=== PATIENT | female | born 1950 | race Caucasian/White ===

== ENCOUNTER 2020-06-10 11:04 | Outpatient (CLI) | payer MEDICARE, SELFPAY ==
[2020-06-10 11:12] LABS: Hematocrit 43.3 % (35.0-42.0); Hemoglobin 14.4 g/dL (11.7-13.8); Mean Corpuscular HGB Conc 33.3 g/dL (32.0-36.0); Mean Corpuscular Hemoglobin 30.4 pg (27.0-31.0); Mean Corpuscular Volume 91.4 fL (78.0-102.0); Mean Platelet Volume 8.6 fl (9.2-11.8); Platelet Count Result 301 K/mm3 (150-420); Red Blood Count 4.74 M/mm3 (4.20-5.40); Red Cell Distribution Width 13.2 % (11.6-14.4); White Blood Count 8.3 K/mm3 (4.8-10.8)
[2020-06-10 12:40] LABS: Alanine Aminotransferase 19 U/L (14-59); Albumin Level 3.9 g/dL (3.4-5.0); Alkaline Phosphatase 94 U/L (46-116); Anion Gap 7 mmol/L (8-16); Aspartate Amino Transferase < 10 U/L (15-37); Bilirubin,Total 0.4 mg/dL (0.00-1.00); Blood Urea Nitrogen 22 mg/dL (7-18); Calcium 9.3 mg/dL (8.5-10.1); Carbon Dioxide 28 mmol/L (21-32); Chloride 103 mmol/L (98-108); Cholesterol 255 mg/dL (0-200); Estimated Glomerular Filt Rate > 60; Glucose 86 mg/dL (70-99); HDL Direct 62 mg/dL (40-60); LDL Cholesterol Calculated 169 mg/dL (<130); Osmolality Calculated 288 mOsm/kg (285-295); Potassium 5.1 mmol/L (3.5-5.1); Sodium 138 mmol/L (136-145); Triglycerides 119 mg/dL (0-150)
== END 2020-06-10 11:05 | disposition home or self-care (01) ==
PROVIDERS: PCP Family Medicine; Visit Provider Family Medicine
DX: E78.00 Pure hypercholesterolemia, unspecified (principal); Z00.00 Encounter for general adult medical examination without abnormal findings
CPT/HCPCS: 36415; 80053; 80061; 85027

== ENCOUNTER 2021-11-15 08:36 | Outpatient (CLI) | payer MEDICARE, SELFPAY ==
--- NOTE | ~2021-11-15 | XR_ITS ---
EXAMINATION: XR knee RT min 4V DATE: 11/15/2021 08:53 INDICATION: Generalized right knee pain TECHNIQUE: Weight bearing anteroposterior and Villagran, sunrise, and flexed lateral views of the rig ht knee were obtained COMPARISON: None. FINDINGS: Alignment is normal. No fracture. Tricompartmental osteoarthritis of the right knee with severe join t space narrowing at the lateral side of the patellofemoral compartment and moderate joint space narr owing the medial compartment, greatest within the knee in flexion. Marginal osteophytes, moderate siz ed the patellofemoral compartment and small in the medial and lateral compartments. Moderate-sized ri ght knee joint effusion without layering lipohemarthrosis. Soft tissues are unremarkable. IMPRESSION: 1. Tricompartmental osteoarthritis of the right knee, severe at the lateral patellofemoral compartmen t and moderate in the medial compartment. 2. Moderate-sized right knee joint effusion. Reviewed, dictated and finalized at location A. IMPRESSION: 1. Tricompartmental osteoarthritis of the right knee, severe at the lateral pat ellofemoral compartment and moderate in the medial compartment. 2. Moderate-sized right knee joint effusion.
== END 2021-11-15 08:37 | disposition home or self-care (01) ==
LOC: CHSIMG 08:38
PROVIDERS: PCP Nurse Practitioner Family; Visit Provider Orthopaedic Surgery
DX: M25.561 Pain in right knee (principal)
CPT/HCPCS: 73564

== ENCOUNTER 2021-11-25 09:24 | Outpatient (CLI) | payer MEDICARE, SELFPAY ==
[2021-11-25 10:15] LABS: Alanine Aminotransferase 24 U/L (14-59); Alkaline Phosphatase 99 U/L (46-116); Anion Gap 10 mmol/L (8-16); Aspartate Amino Transferase 11 U/L (15-37); Bilirubin,Total 0.6 mg/dL (0.00-1.00); Blood Urea Nitrogen 18 mg/dL (7-18); Calcium 9.5 mg/dL (8.5-10.1); Carbon Dioxide 30 mmol/L (21-32); Chloride 101 mmol/L (98-108); Cholesterol 167 mg/dL (0-200); Estimated Glomerular Filt Rate > 60; Glucose 86 mg/dL (70-99); HDL Direct 71 mg/dL (40-60); LDL Cholesterol Calculated 83 mg/dL (<130); Osmolality Calculated 292 mOsm/kg (285-295); Potassium 4.2 mmol/L (3.5-5.1); Sodium 141 mmol/L (136-145); Total Protein 6.9 g/dL (6.4-8.2); Triglycerides 64 mg/dL (0-150)
== END 2021-11-25 09:25 | disposition home or self-care (01) ==
LOC: CHSLAB 09:25
PROVIDERS: PCP Nurse Practitioner Family; Visit Provider Nurse Practitioner Family
DX: E78.5 Hyperlipidemia, unspecified (principal)
CPT/HCPCS: 36415; 80053; 80061

== ENCOUNTER 2021-12-30 09:01 | Outpatient (CLI) | payer MEDICARE, SELFPAY ==
[2021-12-30 09:15] LABS: Basophils Absolute Auto 0.05 K/mm3 (0.00-0.10); Basophils Percent Auto 0.8 % (0.0-1.0); Eosinophils Absolute Auto 0.47 K/mm3 (0.02-0.50); Eosinophils Percent Auto 7.1 % (1.0-6.0); Hematocrit 41.3 % (35.0-42.0); Hemoglobin 13.9 g/dL (11.7-13.8); Immature Granulocyte Absolute 0.03 K/mm3 (0.00-0.00); Immature Granulocyte Percent A 0.5 % (0.0-0.0); Lymphocytes Absolute Auto 2.17 K/mm3 (1.10-4.50); Lymphocytes Percent Auto 32.9 % (18.0-42.0); Mean Corpuscular HGB Conc 33.7 g/dL (32.0-36.0); Mean Corpuscular Hemoglobin 31.2 pg (27.0-31.0); Mean Corpuscular Volume 92.6 fL (78.0-102.0); Mean Platelet Volume 8.8 fl (9.2-11.8); Monocytes Absolute Auto 0.46 K/mm3 (0.10-0.90); Neutrophils Absolute Auto 3.4 K/mm3 (1.7-7.2); Neutrophils Percent Auto 51.7 % (50.0-70.0); Platelet Count Result 288 K/mm3 (150-420); Red Blood Count 4.46 M/mm3 (4.20-5.40); Red Cell Distribution Width 13.1 % (11.6-14.4); White Blood Count 6.6 K/mm3 (4.8-10.8)
[2021-12-30 09:46] LABS: Alanine Aminotransferase 23 U/L (14-59); Albumin Level 3.6 g/dL (3.4-5.0); Alkaline Phosphatase 102 U/L (46-116); Anion Gap 9 mmol/L (8-16); Aspartate Amino Transferase 14 U/L (15-37); Bilirubin,Total 0.6 mg/dL (0.00-1.00); Blood Urea Nitrogen 21 mg/dL (7-18); Calcium 9.1 mg/dL (8.5-10.1); Carbon Dioxide 26 mmol/L (21-32); Chloride 104 mmol/L (98-108); Estimated Glomerular Filt Rate > 60; Free T4 Free Thyroxine 1.05 ng/dL (0.76-1.46); Glucose 96 mg/dL (70-99); Osmolality Calculated 291 mOsm/kg (285-295); Sodium 139 mmol/L (136-145); Thyroid Stimulating Hormone 1.07 uIU/mL (0.36-3.74); Total Protein 6.8 g/dL (6.4-8.2)
[2022-01-08 19:22] LABS: Chenodeoxycholic Acid 1.6 umol/L (< OR = 3.9); Cholic Acid 0.8 umol/L (< OR = 2.8); Total Bile Acids 4.3 umol/L (< OR = 8.3)
== END 2021-12-30 09:02 | disposition home or self-care (01) ==
LOC: CHSLAB 09:04
PROVIDERS: PCP Nurse Practitioner Family
DX: L29.9 Pruritus, unspecified (principal)
CPT/HCPCS: 36415; 80053; 82542; 84439; 84443; 85025

== ENCOUNTER 2022-01-27 11:31 | Outpatient (CLI) | payer MEDICARE, SELFPAY ==
[2022-01-27 11:54] LABS: Basophils Absolute Auto 0.03 K/mm3 (0.00-0.10); Basophils Percent Auto 0.4 % (0.0-1.0); Hematocrit 39.4 % (35.0-42.0); Hemoglobin 13.4 g/dL (11.7-13.8); Immature Granulocyte Absolute 0.02 K/mm3 (0.00-0.00); Immature Granulocyte Percent A 0.3 % (0.0-0.0); Lymphocytes Absolute Auto 2.13 K/mm3 (1.10-4.50); Lymphocytes Percent Auto 31.7 % (18.0-42.0); Mean Corpuscular Volume 91.2 fL (78.0-102.0); Monocytes Absolute Auto 0.53 K/mm3 (0.10-0.90); Monocytes Percent Auto 7.9 % (2.0-11.0); Neutrophils Absolute Auto 3.8 K/mm3 (1.7-7.2); Neutrophils Percent Auto 56.7 % (50.0-70.0); Platelet Count Result 307 K/mm3 (150-420); Red Blood Count 4.32 M/mm3 (4.20-5.40); Red Cell Distribution Width 12.8 % (11.6-14.4); White Blood Count 6.7 K/mm3 (4.8-10.8)
[2022-01-27 12:46] LABS: Ferritin 137 ng/mL (8-252); Iron 89 ug/dL (50-170)
[2022-01-30 16:58] LABS: Albumin 4.2 g/dL (3.8-4.8); Alpha 1 Globulin 0.3 g/dL (0.2-0.3); Alpha 2 Globulin 0.7 g/dL (0.5-0.9); Beta 1 Globulin 0.5 g/dL (0.4-0.6); Gamma Globulin 0.7 g/dL (0.8-1.7); Interpretation Consistent with; Protein, Total 6.7 g/dL (6.1-8.1)
[2022-02-03 15:53] LABS: Lambda Light Chain 10.5 mg/L (5.7-26.3)
== END 2022-01-27 11:32 | disposition home or self-care (01) ==
LOC: CHSLAB 11:37
PROVIDERS: PCP Nurse Practitioner Family
DX: R71.8 Other abnormality of red blood cells (principal); R21 Rash and other nonspecific skin eruption; D80.1 Nonfamilial hypogammaglobulinemia
CPT/HCPCS: 36415; 82570; 82728; 83540; 83883; 84155; 84156; 84165; 84166; 85025

== ENCOUNTER 2022-04-13 07:44 | Outpatient (CLI) | payer MEDICARE, SELFPAY | END 2022-04-13 07:45 | disposition home or self-care (01) | LOC: CHSAUDIO 07:46 | PROVIDERS: PCP Nurse Practitioner Family; Visit Provider Nurse Practitioner Family | DX: Z71.89 Other specified counseling (principal) | CPT/HCPCS: 92557 ==

== ENCOUNTER 2023-05-04 08:40 | Outpatient (RCR) | payer MEDICARE, SELFPAY ==
--- NOTE | 2023-05-05 13:11 | OPREHPOC ---
Outpatient Therapy Plan of Care This is a Multidisciplinary Plan of Care that may contain components documented by all disciplines (PT, OT, and ST.) PT Problem 1 PT Problem #1 Knowledge Deficit PT Goal 1 Goal 1. Patient to demonstrate independence with HEP to improve progress made in PT. Target Visit 5 PT Problem 2 PT Problem #2 Pain PT Goal 1 Goal 1. Patient to report pain in the R thigh/hip as 2/ 10 at worst to improve ability to walk in grocery store without rest break. Target Visit 10 PT Problem 3 PT Problem #3 Impaired Strength PT Goal 1 Goal 1. Patient to achieve R LE strength of 4+/5 or greater overall to improve her ability to ascend/ descend stairs in community. Target Visit 10 PT Problem 4 PT Problem #4 Impaired Flexibility PT Goal 1 Goal 1. Patient to improve R hamstring length to lacking 10 degrees or less to improve ability to reach floor to cigar packer and picker objects. 2. Patient to improve B rectus femoris flexibility to lacking 15 degrees or less. 3. Patient to improve R ITB length to mild tightness in order to improve standing posture. Target Visit 10 PT Problem 5 PT Problem #5 Impaired Functional Mobil PT Goal 1 Goal 1. Patient to improve LEFS to 5% or less functional decline to improve patient's ability to play with grandchildren. 2. Patient to walk 500 feet with reports of knee in R knee and thigh at 1/10 or less to improve her ability to walk in community. Target Visit 10
--- NOTE | 2023-05-05 13:12 | PTOPEVAL1 ---
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 She notes she visited the doctor, and has received cortisone as well as gel injections to treat the pain. At home she also treats pain with TLC and ice. She notes when she walks extended distances [place] the airport, pain in the knee reaches all the up the lateral thigh into the buttock. She feels like she walks with an abnormal pattern. She notes no surgeries in the R leg, but has noted arthritis from x-rays and currently wants to avoid a knee replacement. She reports being pretty active, but has since found difficulty in maintaining this level of activity. She notes that she was using a cane in the past to ambulate with, as well as wearing a knee brace. She notes that last week while she was working in her yard, she had increased pain in the hip that recovered with a rest break. She has concerns about not being able to walk further distances due to the pain. She notes she is able to perform all her daily activities with modifications. Reported Pain Level Pain Score 0,0: Self Report Assessment PT Clinical Summary Mrs. Stevens is a 73 y/o female who presents to skilled PT for R knee pain and ITB irritation. She currently shows limitations in R knee ROM, LE strength, and flexibility. Patient has 15% functional decline as assessed by the LEFS. She reports difficulty with walking for longer distances and hopes to return to her prior activities with no limitations. She presents with an antalgic gait pattern, which is further impaired by her inability to reach terminal knee extension both actively and passively. Patient would benefit from continued skilled PT to address ROM, strength, flexibility, and gait to improve her ability to function in the community and home environments. Plan of Care Interventions Electrical Stimulation,Gait Training,Hot Pack/Cold Pack,Manual Therapy,Neuro Re-education,Patient/ Caregiver Educati,Therapeutic Activities, Therapeutic Exercise PT Services Indicated Yes
--- NOTE | 2023-05-29 13:45 | PTOPEVAL1 ---
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 reports that her pain in the right knee and right leg has improved. Jam eports that pain is a 2/10 at rest. It does increase to a 6/10, but it is much less intense and frequent. She that steps remain difficult and still does 1 step at a time. She reports that she would like to continue to decrease her pain and be able to walk and navigate steps better. Reported Pain Level Pain Score 2,2: Self Report Pain Score 2,6: Self Report Assessment PT Clinical Summary Mrs. Stevens has attended a total of 10 treatment sessions. In this time she has demonstrated improvement in ROM, strength, endurance and functional mobility. She continues to have hip abductor weakness and difficulty with navigating steps. At this time it is recommended that skilled PT is continued focusing on remaining gait deficits and weakness to allow for improved efficiency with stair navigation. Plan of Care Interventions Electrical Stimulation,Gait Training,Hot Pack/Cold Pack,Manual Therapy,Neuro Re-education,Patient/ Caregiver Educati,Therapeutic Activities, Therapeutic Exercise,Self-Care/Home Management PT Services Indicated Yes Treatment Frequency and 1x/week x 4 visits Duration These treatments will address the objective and functional deficits as defined above. The patient will be advanced safely and appropriately in order for the patient to progress towards his/her prior level of function. Additional exercises will be introduced and as well as a comprehensive home exercise program upon discharge, if needed, ?to ensure carryover of functional gains achieved in the clinic. This treatment plan has been reviewed and agreement upon by the patient.
== END 2023-06-26 14:10 | disposition home or self-care (01) ==
LOC: CHSPT 08:40
PROVIDERS: Visit Provider Orthopaedic Surgery
DX: M76.31 Iliotibial band syndrome, right leg (principal); M17.11 Unilateral primary osteoarthritis, right knee
CPT/HCPCS: 97014; 97110; 97140; 97161; 97530; G0283

== ENCOUNTER 2023-06-12 08:24 | Outpatient (CLI) | payer MEDICARE, SELFPAY ==
--- NOTE | ~2023-06-12 | XR_ITS ---
EXAMINATION: XR hand RT min 3V DATE: 06/12/2023 08:49 INDICATION: Right hand fifth digit loss of range of motion. TECHNIQUE: 4 views of right hand were obtained. COMPARISON: None. FINDINGS: There is flexion of the metacarpophalangeal joints all images. There is hyperextension of f ifth distal interphalangeal joint and flexion of fifth proximal interphalangeal joint on all images. No fracture. There is severe osteoarthritis of first carpometacarpal joint and mild osteoarthritis of some of the interphalangeal joints. There is moderate osteoarthritis of second and third distal inte rphalangeal joints. IMPRESSION: 1. Boutonniere deformity of the fifth digit. 2. Polyarticular osteoarthritis. Reviewed, dictated and finalized at location A.
== END 2023-06-12 08:25 | disposition home or self-care (01) ==
LOC: CHSIMG 08:26
PROVIDERS: PCP Nurse Practitioner Family; Visit Provider Orthopaedic Surgery
DX: M79.641 Pain in right hand (principal); M20.021 Boutonniere deformity of right finger(s); M19.041 Primary osteoarthritis, right hand
CPT/HCPCS: 73130

== ENCOUNTER 2024-03-18 08:12 | Outpatient (CLI) | payer MEDICARE, SELFPAY ==
--- NOTE | ~2024-03-18 | XR_ITS ---
Right Knee Technique: AP, lateral, and sunrise views were obtained. Clinical History: Pain COMPARISON: 01/03/2023 Findings: No fracture or dislocation is seen. There is advanced degenerative change of the patellofem oral compartment, with extensive osteophyte formation and joint space narrowing. There is moderate to advanced degenerative change of the medial and lateral compartments. Soft tissues are unremarkable. No joint effusion is seen. Impression: Tricompartmental osteoarthritis, as detailed above, worst in the patellofemoral compartment. Reviewed, dictated and finalized at location M. Impression: Tricompartmental osteoarthritis, as detailed above, worst in the patellofemoral compartment.
== END 2024-03-18 08:13 ==
LOC: CHSIMG 08:14
PROVIDERS: PCP Nurse Practitioner Family; Visit Provider Orthopaedic Surgery
DX: M25.561 Pain in right knee (principal); M17.11 Unilateral primary osteoarthritis, right knee
CPT/HCPCS: 73564

== ENCOUNTER 2024-11-18 11:28 | Outpatient (CLI) | payer MEDICARE, SELFPAY ==
[2024-11-18 12:32] LABS: Alanine Aminotransferase 80 U/L (14-59); Albumin Level 3.6 g/dL (3.4-5.0); Alkaline Phosphatase 136 U/L (46-116); Anion Gap 8 mmol/L (4-12); Aspartate Amino Transferase 41 U/L (15-37); Bilirubin,Total 0.6 mg/dL (0.00-1.00); Blood Urea Nitrogen 24 mg/dL (7-18); Calcium 9.3 mg/dL (8.5-10.1); Carbon Dioxide 28 mmol/L (21-32); Chloride 106 mmol/L (98-108); Cholesterol 162 mg/dL (0-200); Estimated Glomerular Filt Rate 50; Free T4 Free Thyroxine 1.02 ng/dL (0.76-1.46); Glucose 103 mg/dL (70-99); HDL Direct 57 mg/dL (40-60); LDL Cholesterol Calculated 86 mg/dL (<130); Magnesium 1.6 mg/dL (1.8-2.4); Osmolality Calculated 298 mOsm/kg (285-295); Potassium 4.2 mmol/L (3.5-5.1); Sodium 142 mmol/L (136-145); Thyroid Stimulating Hormone 1.05 uIU/mL (0.36-3.74); Total Protein 6.8 g/dL (6.4-8.2); Triglycerides 95 mg/dL (0-150)
--- OUTSIDE RECORDS SUMMARY | 2024-11-18 14:04 | XMS_ITS | Encounter Summary ---
Author Organization [facility] Address [address] [place] [address] Care Team Providers Care Airline Managerial Supervisor Name Role Phone Unavailable Primary Care Provider Unavailabl e Encounter Details Date Type Department Care Team (Late st Contact Info) Description 08/15/2023 Lab Requisition [facility] - DermPath Lab [address] [place] [address] Yamileth Aggarwal DO [address] [facility] [address] [place] [address] Social History Tobacco Use Types Packs/Day Years Used Date Smoking Tobacco: Never Assessed Sex and Gender Information Value Date Recorded Sex Assigned at Not on file Gender Identity Not on file Sexual Orientation Not on file documented as of this encounter Plan of Treatment Not on file documented as of this encounter Procedures Procedure Name Priority Date/Time Associated Diagnosis Comments DERMATOPATHOLOGY Routine 08/15/2023 11:1 6 AM WASH OIL PUMP OPERATOR documented in this encounter Results * DERMATOPATHOLOGY (08/15/2023 11:16 AM WASH OIL PUMP OPERATOR) Case Report Dermatopathology Report Case: [id number] Authorizing Provider: Yamileth Aggarwal DO Collected: 08/15/2023 11:16 AM Ordering Location: [facility] DermPath Lab Received: 08/16/2023 06:54 AM Pathologist: Shawna Delgado MD Specimen: Skin, left upper arm 3 3:48 PM WASH OIL PUMP OPERATOR DERMATOPATHOLOGY LABORATORY Final Diagnosis Specimen A. 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 Check Margins, Prior Biopsy 3:48 PM [facility] DERMATOPATHOLOGY LABORATORY Gross Description Specimen A: Received is one formalin filled container labeled with the patient's name and designated left upper arm. The specimen consists of a non-oriented ellipse of skin measuring [id number] mm. The epidermal surface is unremarkable. The margin is inked green. The 12 o'clock and 6 o'clock tips are submitted in cassette 1. The remainder of the ellipse is serially sectioned and submitted in cassette 2-3. An additional piece of the ellipse measuring 9x6x1 mm is submitted in cassette 4. Jar 0. 3:48 PM [facility] DERMATOPATHOLOGY LABORATORY Microscopic Description Specimen A. SKIN, left upper arm: The epidermis shows parakeratosis, full thickness disorderly maturation of keratinocytes, mitoses at different levels, and dyskeratotic cells. This lesion is not present at the margin of the specimen. There are fibroblasts and collagen bundles oriented parallel to the skin surface with elongated blood vessels, some of which are oriented perpendicular to the skin surface. 3:48 PM [facility] DERMATOPATHOLOGY LABORATORY Disclaimer An external and internal positive and negative controls are appropriate for the histochemical, immunohistochemical and immunofluorescence stain(s) in this case (if any), except where stated explicitly. The performance characteristics of the stain(s) cited in this report were developed and its performance characteristic determined by the Dermatopathology Laboratory at [facility], directed by Dr. Sandie Giraldo. These tests need not be, and therefore are not, approved by the [place] Food and Drug Administration. The tests are used for clinical purposes. Billing Codes Specimen Charges Stain Charges 20548 1 3 3:48 PM [facility] DERMATOPATHOLOGY LABORATORY Embedded Images 3 3:48 PM [facility] DERMATOPATHOLOGY LABORATORY Pathology/Cytolo gy TISSUE SPECIMEN FROM SKIN / Unknown 08/15/2023 11:16 AM WASH OIL PUMP OPERATOR 08/16/2023 6:54 AM WASH OIL PUMP OPERATOR Yamileth Aggarwal DO LAB - PATHOLOGY/C YTOLOGY ORDERABLES DERMATOPATHOLOGY LABORATORY [facility] - Department of Dermatology [address] Floor [place], [place] [id number] [place] [address] documented in this encounter Visit Diagnoses Not on filedocumented in this encounter
--- OUTSIDE RECORDS SUMMARY | 2024-11-18 14:04 | XMS_ITS | Clinical Summary ---
Author Organization [facility] Address [address] [place] [address] Care Team Providers Care Front Desk Worker Name Role Phone Unavailable Primary Care Provider Unavailabl e Source Comments [facility],non-owned Affiliates and Associated Physician Practices is amultiple site organization consisting of ambulatory clinics and hospital sitesin [place], [place], [place] and [place]. This disclosure is being madepursuant to the Care Everywhere program and may not contain all information available regarding this patient. Last updated 18.[facility] [employer] Social History Tobacco Use Types Packs/Day Years Used Date Smoking Tobacco: Never Assessed Sex and Gender Information Value Date Recorded Sex Assigned at Not on file Gender Identity Not on file Sexual Orientation Not on file Plan of Treatment Health Maintenance Due Date Last Done Comments BONE DENSITY TESTING 1950 HEPATITIS C SCREENING 02/10/1966 DTAP/TDAP/TD VACCINES (1 - Tdap) 02/14/1967 PNEUMOCOCCAL VACCINE 50+ (1 of 1 - PCV) 02/14/1998 ZOSTER VACCINE (1 of 2) 02/14/1998 Respiratory Syncytial Virus (RSV) Vaccine Pt: or over 60 yrs (1 - 1-dose 75+ series) 02/14/2023 COVID-19 VACCINE ( - 2023-2 5 season) 2024 INFLUENZA VACCINE (#1) 2024 DEPRESSION SCREENING 09/04/2024 MEDICARE AWV CALENDAR YEAR 2024 HEPATITIS B VACCINE Aged Out No longe r eligible based on patient's age to complete this topic HIB VACCINE Aged Out No longer eligi ble based on patient's age to complete this topic HPV VACCINE Aged Out No longer eligi ble based on patient's age to complete this topic MENINGOCOCCAL (Group B) VACC INE SHARED DECISION-MAKING Aged Out No longer eligibl e based on patient's age to complete this topic MENINGOCOCCAL GROUPS A/C/Y/W VACCINE Aged Out No longer eligible b ased on patient's age to complete this topic
--- OUTSIDE RECORDS SUMMARY | 2024-11-18 14:04 | XMS_ITS | Clinical Summary ---
Author Organization [facility] Address [address] [place] [address] Care Team Providers Care Information Clerk [employer] Name Role Phone Carisa Petit NP Primary Care Provider [phone] Allergies No known active allergies Medications No known medications Active Problems No known active problems Encounters Date Type Department Care Team Description 09/12/2024 8:46 AM TRANSFORMER BUILDER - 09/12/2024 11:59 PM TRANSFORMER BUILDER Hospital Encounter [facility] [address] [place] [address] Screening mammogram, encounter for Discharge Disposition: Discharge to home or self care from Last 3 Months Surgical History Surgery Date Site/Laterality Comments HYSTERECTOMY OOPHORECTOMY CATARACT EXTRACTION 1994 FRACTURE SURGERY 2010 CHOLECYSTECTOMY 2006 TUBAL LIGATION 1980 BLADDER SURGERY 1989 Medical History Medical History Date Comments GERD (gastroesophageal reflux disease) 2003 Anxiety 2023 Arthritis 2010 Cataract 1994 Family History Medical History Relation Name Comments Allergy (severe) Daughter 1 Louann Bozung Asthma Daughter 1 Louann Bozung Rashes / Skin problems Daughter 1 Louann Bozung Diabetes Daughter 2 Matty Bravo Arthritis Father Pradeep Gates Vision loss Maternal Grandmother Sofy Marin Breast cancer Neg Hx Ovarian cancer Neg Hx Thyroid cancer Neg Hx Relation Name Status Comments Daughter 1 Louann Bozung Daughter 2 Matty Bravo Father Pradeep Gates Maternal Grandmother Sofy [place] Social History Tobacco Use Types Packs/Day Years Used Date Smoking Tobacco: Never Cigarettes Smokeless Tobacco: Never Tobacco Cessation:Counseling Given: Not Answered Comments: smoked 60 years now has COPD Comments No Sex and Gender Information Value Date Recorded Sex Assigned at Not on file Legal Sex Female 9:13 AM TRANSFORMER BUILDER Gender Identity Not on file Sexual Orientation Not on file Obstetrics History Para Term AB IAB SAB Ectopic Multiple Livin g Live Births 2 2 2 Date Outcome GA Total Labor Labor/2nd/3rd Weight Sex Type Anes PTL Stcay A1 A5 Name Clin Term Term Last Filed Vital Signs Vital Sign Reading Time Taken Comments Blood Pressure - - Pulse - - Temperature - - Respiratory Rate - - Oxygen Saturation - - Inhaled Oxygen Concentration - - Weight - - Height 160 cm (5' 3 ) 09/12/2024 8:52 AM TRANSFORMER BUILDER Body Mass Index - - Plan of Treatment Health Maintenance Due Date Last Done Comments Depression Screening 1950 Fall Risk Assessment 1950 Hepatitis C Screening 1950 DTaP/Tdap/Td Vaccine (1 - Tdap) 02/14/1959 Hepatitis B Screening 02/14/1966 Zoster Vaccine (1 of 2) 02/14/1998 Well Visit 65+ 02/14/2013 Influenza Vaccine (#1) 2024 , 06/12/2017, 05/31/2016, Additional history exists Osteoporosis Screening-Bone Density Scan 08/14/2025 08/14/2023, 07/27/2021 Pneumococcal vaccine 65+ Completed 06/04/2018, 05/2017 Breast Cancer Screening-Mammogram Discontinued 09/12/2024, 08/14/2023, 08/10/2022, Additional history exists Procedures Procedure Name Priority Date/Time Associated Diagnosis Comments SCREENING MAMMOGRAM BILATERAL W OWEN Schedule Routine, Read Routine (OP Routine) 09/12/2024 8:52 AM TRANSFORMER BUILDER Screening mammogram, encounter for DEXA AXIAL SKELETON BONE DENSITY 1 OR MORE SITES Schedule Routine, Read Routine (OP Routine) 08/14/2023 10:35 AM TRANSFORMER BUILDER Asymptomatic menopausal state from Last 3 Months or Most Recently Relevant to Health Maintenance Results * Screening Mammogram Bilateral W Owen (09/12/2024 8:52 AM TRANSFORMER BUILDER) Anatomical Region Laterality Modality Breast Bilateral Mammography 09/12/2024 9:12 AM TRANSFORMER BUILDER Impressions 09/12/2024 9:12 AM TRANSFORMER BUILDER No evidence of malignancy in either breast. FINAL ASSESSMENT: BI-RADS Category 1: Negative. RECOMMENDATION: Recommend return for annual screening mammogram in 12 months. Electronically signed by: Tahir Ochoa M.D. Narrative 09/12/2024 9:12 AM TRANSFORMER BUILDER EXAMINATION: BILATERAL SCREENING MAMMOGRAM COMPARISON: 08/14/2023, 08/10/2022, 07/27/2021, 07/07/2020 TECHNIQUE: Full-field 2D and digital breast tomosynthesis (DBT) images were obtained. CAD was utilized. BREAST PARENCHYMAL COMPOSITION: The breasts are almost entirely fatty. FINDINGS: There is no suspicious mass, calcification, or distortion in either breast. us Self Screening Mammogram IMG MAMMO PROCEDURES Fi nal Result * Dexa Axial Skeleton Bone Density 1 or 2 Site (08/14/2023 10:35 AM TRANSFORMER BUILDER) Anatomical Region Laterality Modality Body N/A Other 08/14/2023 6:47 PM TRANSFORMER BUILDER Narrative 08/14/2023 6:49 PM TRANSFORMER BUILDER EXAM DESCRIPTION: DEXA AXIAL SKELETON BONE DENSITY 1 OR MORE SITES REASON FOR STUDY: 73 y/o year old F with given history of: asymtomatic menopausal state Osteoporosis screening Post menopausal Tobacco Blender/Model: [place] SL (S/N [id number]) CLINICAL INFORMATION: Current height: 64 inches Maximum height: 64 inches Weight: 175 pounds Risk factors: Postmenopausal, prior hip/vertebral fracture, adult fracture COMPARISON: 07/27/2021 Dissimilar scan types or analysis methods precludes assessment for calculating a significant change. FINDINGS: AP LUMBAR SPINE L1-L4: Total BMD is 1.296 g/cm2 T-score is 2.3 Right HIP: Total BMD is 0.748 g/cm2 T-score is -1.6 Femoral neck BMD is 0.609 g/cm2 T-score is -2.2 FRAX: FRAX tool cannot be utilized due to prior hip/vertebral fracture. IMPRESSION: Low Bone Mass. REFERENCE: Bone mineral density: Normal (T-score above or = -1.0) Low bone mass (T-score between -1.0 and -2.5) replaces the previously used term osteopenia Osteoporosis (T-score = or below -2.5) Medical evaluation for secondary causes of low bone mineral density may be appropriate. FRAX is a World Health Organization validated fracture risk assessment tool that calculates a person's 10 year probability of a major osteoporosis related fracture and hip fracture. According to the National Osteoporosis Foundation guidelines, postmenopausal women and men age 50 or older with low bone mass and a 10 year probability of a major osteoporosis related fracture = or greater than 20% or a 10 year probability of a hip fracture = or greater than 3% should be considered for treatment. For further information, including treatment recommendations, please refer to the 2019 ISCD Official Positions (http://www.iscd.org) and the NOF's Clinician's Guide to Prevention and Treatment of Osteoporosis (http://www.nof.org/professionals/clinical-guidelines) THIS IS AN ELECTRONICALLY VERIFIED FINAL REPORT 08/14/2023 6:49 PM - Electronically signed by Manuelito Pena M.D. MF: THERESE Report ID: [id number] Reading Location: [id number] Procedure Note Manuelito Pena MD - 08/14/2023 EXAM DESCRIPTION: DEXA AXIAL SKELETON BONE DENSITY 1 OR MORE SITES REASON FOR STUDY: 73 y/o year old F with given history of:asymtomatic menopausal state Osteoporosis screening Post menopausal Tobacco Blender/Model: [employer] SL (S/N [id number]) CLINICAL INFORMATION: Current height: 64 inches Maximum height: 64 inches Weight: 175 pounds Risk factors: Postmenopausal, prior hip/vertebral fracture, adultfracture COMPARISON: 07/27/2021 Dissimilar scan types or analysis methods precludes assessment for calculating a significant change. FINDINGS: AP LUMBAR SPINE L1-L4: Total BMD is 1.296 g/cm2 T-score is 2.3 Right HIP: Total BMD is 0.748 g/cm2 T-score is -1.6 Femoral neck BMD is 0.609 g/cm2 T-score is -2.2 FRAX: FRAX tool cannot be utilized due to prior hip/vertebral fracture. IMPRESSION: Low Bone Mass. REFERENCE: Bone mineral density: Normal (T-score above or = -1.0) Low bone mass (T-score between -1.0 and -2.5) replaces thepreviously used term osteopenia Osteoporosis (T-score = or below -2.5) Medical evaluation for secondary causes of low bone mineral density may be appropriate. FRAX is a World Health Organization validated fracture risk assessmenttool that calculates a person's 10 year probability of a major osteoporosisrelated fracture and hip fracture. According to the National OsteoporosisFoundation guidelines, postmenopausal women and men age 50 or older with low bonemass and a 10 year probability of a major osteoporosis related fracture = or greater than 20% or a 10 year probability of a hip fracture = or greaterthan 3% should be considered for treatment. For further information, including treatment recommendations, please referto the 2019 ISCD Official Positions (http://www.iscd.org) and the NOF's Clinician's Guide to Prevention and Treatment of Osteoporosis (http://www.nof.org/professionals/clinical-guidelines) THIS IS AN ELECTRONICALLY VERIFIED FINAL REPORT 08/14/2023 6:49 PM - Electronically signed by Manuelito Pena M.D. MF: THERESE Report ID: [id number] Reading Location: [place] [address] Pradeep Amador MD IM DXA PROCEDURES Final Re sult from Last 3 Months or Most Recently Relevant to Health Maintenance Insurance MEDICARE SOLUTIONS MEDICARE MEDICARE SOLUTIONS MEDICARE SOLUTIONS Care Teams Information [employer] Relationship Specialty Start Date End Date Carisa Petit NP [address] [place] [address] [phone] (work) PCP - General 07/27/21
--- OUTSIDE RECORDS SUMMARY | 2024-11-18 14:04 | XMS_ITS | Referral Summary ---
Author Organization [facility] Address [address] [place] [address] Care Team Providers Care Rig Manager Name Role Phone Carisa Petit NP Primary Care Provider [phone] Encounters Date Type Department Care Team Description 09/12/2024 8:46 AM DAIRY FARMWORKER - 09/12/2024 11:59 PM DAIRY FARMWORKER Hospital Encounter [facility] [address] [place] [address] Screening mammogram, encounter for Discharge Disposition: Discharge to home or self care from Last 3 Months Allergies No known active allergies Medications No known medications Active Problems No known active problems Social History Tobacco Use Types Packs/Day Years Used Date Smoking Tobacco: Never Cigarettes Smokeless Tobacco: Never Tobacco Cessation:Counseling Given: Not Answered Comments: smoked 60 years now has COPD Comments No Sex and Gender Information Value Date Recorded Sex Assigned at Not on file Legal Sex Female 9:13 AM DAIRY FARMWORKER Gender Identity Not on file Sexual Orientation Not on file Last Filed Vital Signs Vital Sign Reading Time Taken Comments Blood Pressure - - Pulse - - Temperature - - Respiratory Rate - - Oxygen Saturation - - Inhaled Oxygen Concentration - - Weight - - Height 160 cm (5' 3 ) 09/12/2024 8:52 AM DAIRY FARMWORKER Body Mass Index - - Plan of Treatment Not on file Procedures Procedure Name Priority Date/Time Associated Diagnosis Comments SCREENING MAMMOGRAM BILATERAL W OWEN Schedule Routine, Read Routine (OP Routine) 09/12/2024 8:52 AM DAIRY FARMWORKER Screening mammogram, encounter for DEXA AXIAL SKELETON BONE DENSITY 1 OR MORE SITES Schedule Routine, Read Routine (OP Routine) 08/14/2023 10:35 AM DAIRY FARMWORKER Asymptomatic menopausal state from Last 3 Months or Most Recently Relevant to Health Maintenance Results * Screening Mammogram Bilateral W Owen (09/12/2024 8:52 AM DAIRY FARMWORKER) Anatomical Region Laterality Modality Breast Bilateral Mammography 09/12/2024 9:12 AM DAIRY FARMWORKER Impressions 09/12/2024 9:12 AM DAIRY FARMWORKER No evidence of malignancy in either breast. FINAL ASSESSMENT: BI-RADS Category 1: Negative. RECOMMENDATION: Recommend return for annual screening mammogram in 12 months. Electronically signed by: Tahir Ochoa M.D. 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 MF: THERESE Report ID: [id number] Reading Location: [id number] Pradeep Amador MD IM DXA PROCEDURES Final Re sult from Last 3 Months or Most Recently Relevant to Health Maintenance Insurance MEDICARE [employer] MEDICARE MEDICARE [email or web address] MEDICARE [employer] Care Teams Rig Manager Relationship Specialty Start Date End Date Carisa ePtit NP [address] [place] [address] PCP - General 07/27/21
--- OUTSIDE RECORDS SUMMARY | 2024-11-18 14:04 | XMS_ITS | Encounter Summary ---
Author Organization [facility] Address [address] [facility] [place] [address] Care Team Providers Care Surveillance Sensor Officer Name Role Phone Unavailable Primary Care Provider Unavailabl e Encounter Details Date Type Department Care Team (Late st Contact Info) Description 08/09/2019 Lab Requisition [facility] [address] [facility], [place] [id number] Yamileth Aggarwal DO [address] [facility] 3 [place] [address] Social History Tobacco Use Types Packs/Day Years Used Date Smoking Tobacco: Never Assessed Sex and Gender Information Value Date Recorded Sex Assigned at Not on file Gender Identity Not on file Sexual Orientation Not on file documented as of this encounter Plan of Treatment Not on file documented as of this encounter Procedures Procedure Name Priority Date/Time Associated Diagnosis Comments DERMATOPATHOLOGY Routine 08/08/2019 12:0 0 AM NUTRITIONALIST documented in this encounter Results * DERMATOPATHOLOGY (08/08/2019 12:00 AM NUTRITIONALIST) Case Report Dermatopathology Report Case: [id number] Authorizing Provider: Yamileth Aggarwal DO Collected: 08/08/2019 12:00 AM Ordering Location: [facility] Received: 08/09/2019 08:13 AM Pathologist: Racquel Herring MD Specimen: Skin, right medial foot 9 12:48 PM NUTRITIONALIST DERMATOPATHOLOGY LABORATORY Final Diagnosis Specimen A. SKIN, right medial foot: SPONGIOTIC DERMATITIS WITH EOSINOPHILS (L30.8) (see microscopic description and comment) EPIDERMAL NECROSIS SUGGESTIVE OF EXCORIATION (L98.499) 9 12:48 PM NUTRITIONALIST DERMATOPATHOLOGY LABORATORY Clinical History [place]/scaly/fissured plaques ANGELITA feet/hands. PSO vs ICD/ACD. 12:48 PM [facility] DERMATOPATHOLOGY LABORATORY Gross Description Specimen A: Received is one formalin filled container labeled with the patient's name and designated right medial foot. The specimen consists of a shave measuring 8b0x2lx. Jar 0. 12:48 PM [facility] DERMATOPATHOLOGY LABORATORY Microscopic Description Specimen A. SKIN, right medial foot: The epidermis is focally necrotic and covered with a scale-crust. There is fibrin at the base. There is focal parakeratosis and spongiosis. In the dermis there is a mainly superficial perivascular lymphohistiocytic inflammatory infiltrate with eosinophils. Mib-1 highlights proliferating keratinocytes confined to the basilar epidermis. GMS is negative for fungus. COMMENT: The histological differential diagnosis includes a contact dermatitis, an eczematous drug eruption, and less likely the urticarial phase of bullous pemphigoid. 12:48 PM [facility] DERMATOPATHOLOGY LABORATORY Disclaimer An external and internal positive and negative controls are appropriate for the histochemical, immunohistochemical and immunofluorescence stain(s) in this case (if any), except where stated explicitly. The performance characteristics of the stain(s) cited in this report were developed and its performance characteristic determined by the Dermatopathology Laboratory at [facility], directed by Dr. Sandie Giraldo. These tests need not be, and therefore are not, approved by the [place] Food and Drug Administration. The tests are used for clinical purposes. Billing Codes Specimen Charges Stain Charges 85312 1 85330 54606 1 1 12:48 PM [facility] DERMATOPATHOLOGY LABORATORY Embedded Images 12:48 PM [facility] DERMATOPATHOLOGY LABORATORY Pathology/Cytolog y TISSUE SPECIMEN FROM SKIN / Unknown 08/08/2019 08/09/2019 8:13 AM NUTRITIONALIST Yamileth Aggarwal DO LAB - PATHOLOGY/C YTOLOGY ORDERABLES DERMATOPATHOLOGY LABORATORY [facility] - Department of Dermatology [address] [place] [address], 5th Floor Lab B [address] [phone] documented in this encounter Visit Diagnoses Not on filedocumented in this encounter
--- OUTSIDE RECORDS SUMMARY | 2024-11-18 14:04 | XMS_ITS | Patient Health Summary ---
Author Organization [facility] Address [address] [place] [address] Care Team Providers Care Ict Educator Name Role Phone Unavailable Primary Care Provider Unavailabl e Note from [facility],non-owned Affiliates and Associated Physician Practices is amultiple site organization consisting of ambulatory clinics and hospital sitesin [place], [place]. This disclosure is being madepursuant to the Care Everywhere program and may not contain all information available regarding this patient. Last updated 18.[facility] Social History Tobacco Use Types Packs/Day Years Used Date Smoking Tobacco: Never Assessed Sex and Gender Information Value Date Recorded Sex Assigned at Not on file Gender Identity Not on file Sexual Orientation Not on file Procedures * DERMATOPATHOLOGY(Performed 08/15/2023) * DERMATOPATHOLOGY(Performed 06/08/2023) * DERMATOPATHOLOGY(Performed 01/04/2023) * DERMATOPATHOLOGY(Performed 11/30/2022) * DERMATOPATHOLOGY(Performed 12/28/2021) * DERMATOPATHOLOGY(Performed 07/20/2021) * DERMATOPATHOLOGY(Performed 08/08/2019) Results * DERMATOPATHOLOGY (08/15/2023 11:16 AM COVER INSPECTOR) Only the most recent of7 resultswithin the time period is included. Case Report Dermatopathology Report Case: [id number] Authorizing Provider: Yamileth Aggarwal DO Collected: 08/15/2023 11:16 AM Ordering Location: [facility] Lab Received: 08/16/2023 06:54 AM Pathologist: Shawna Delgado MD Specimen: Skin, left upper arm 3:48 PM COVER INSPECTOR DERMATOPATHOLOGY LABORATORY Final Diagnosis Specimen A. 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 Check Margins, Prior Biopsy 3:48 PM [facility] DERMATOPATHOLOGY LABORATORY Gross Description Specimen A: Received is one formalin filled container labeled with the patient's name and designated left upper arm. The specimen consists of a non-oriented ellipse of skin measuring 06d49l4 mm. The epidermal surface is unremarkable. The margin is inked green. The 12 o'clock and 6 o'clock tips are submitted in cassette 1. The remainder of the ellipse is serially sectioned and submitted in cassette 2-3. An additional piece of the ellipse measuring 9x6x1 mm is submitted in cassette 4. Jar 0. 3:48 PM [facility] DERMATOPATHOLOGY LABORATORY Microscopic Description Specimen A. [...] are oriented perpendicular to the skin surface. 3 3:48 PM [facility] DERMATOPATHOLOGY LABORATORY Disclaimer An external and internal positive and negative controls are appropriate for the histochemical, immunohistochemical and immunofluorescence stain(s) in this case (if any), except where stated explicitly. The performance characteristics of the stain(s) cited in this report were developed and its performance characteristic determined by the Dermatopathology Laboratory at [facility], directed by Dr. Sandie Giraldo. These tests need not be, and therefore are not, approved by the [place] Food and Drug Administration. The tests are used for clinical purposes. Billing Codes Specimen Charges Stain Charges 39045 1 3 3:48 PM [facility] DERMATOPATHOLOGY LABORATORY Embedded Images 3 3:48 PM [facility] DERMATOPATHOLOGY LABORATORY Pathology/Cytolo gy TISSUE SPECIMEN FROM SKIN / Unknown 08/15/2023 11:16 AM COVER INSPECTOR 08/16/2023 6:54 AM COVER INSPECTOR Yamileth Aggarwal DO LAB - PATHOLOGY/C YTOLOGY ORDERABLES DERMATOPATHOLOGY LABORATORY [facility] - Department of Dermatology [facility] Specialized Medicine [address] [place] [address], [address] [phone]
--- OUTSIDE RECORDS SUMMARY | 2024-11-18 14:04 | XMS_ITS | Clinical Summary ---
Author Organization [facility] Address Counts include [address] beds at the [facility] [place] [address] Care Team Providers Care Gasateria Attendant Name Role Phone Unavailable Primary Care Provider Unavailabl e Social History Tobacco Use Types Packs/Day Years Used Date Smoking Tobacco: Never Assessed Comments Unknown Sex and Gender Information Value Date Recorded Sex Assigned at Not on file Legal Sex Female 8:22 PM CDT Gender Identity Not on file Sexual Orientation Not on file Plan of Treatment Health Maintenance Due Date Last Done Comments Hepatitis C 02/14/1966 DTaP, Tdap and Td Vaccines ( 1 - Tdap) 02/14/1967 Zoster Vaccines (1 of 2) 02/14/1998 Dexa Scan (General) 02/14/2013 Pneumococcal Vaccine: 65+ Ye ars (1 of 1 - PCV) 02/14/2013 RSV Immunization or 60+ Years (1 - 1-dose 75+ series) 02/14/2023 COVID-19 Vaccine (2023-2 5 season) 2024 Influenza Adult (#1) 2024 Meningococcal B Vaccine Aged Out No l onger eligible based on patient's age to complete this topic Meningococcal Vaccine Aged Out No kim makayla eligible based on patient's age to complete this topic RSV Immunizations Under 20 Months Aged Out No longer eligible based on patient's age to complete this topic
--- OUTSIDE RECORDS SUMMARY | 2024-11-18 14:04 | XMS_ITS | Encounter Summary ---
Author Organization [facility] Address [address] [place] [address] Care Team Providers Care Electrician Substation Name Role Phone Unavailable Primary Care Provider Unavailabl e Encounter Details Date Type Department Care Team (Late st Contact Info) Description 06/08/2023 Lab Requisition [facility] - DermPath Lab [address] [facility], [place] [address] Yamileth Aggarwal DO [address] [facility] [address] [place] [address] Social History Tobacco Use Types Packs/Day Years Used Date Smoking Tobacco: Never Assessed Sex and Gender Information Value Date Recorded Sex Assigned at Not on file Gender Identity Not on file Sexual Orientation Not on file documented as of this encounter Plan of Treatment Not on file documented as of this encounter Procedures Procedure Name Priority Date/Time Associated Diagnosis Comments DERMATOPATHOLOGY Routine 06/08/2023 10:3 5 AM CDT documented in this encounter Results * DERMATOPATHOLOGY (06/08/2023 10:35 AM CDT) Case Report Dermatopathology Report Case: [id number] Authorizing Provider: Yamileth Aggarwal DO Collected: 06/08/2023 10:35 AM Ordering Location: [facility] Lab Received: 06/09/2023 07:50 AM Pathologist: Shawna Delgado MD Specimen: Skin, left upper arm 12:23 PM CDT DERMATOPATHOLOGY LABORATORY Final Diagnosis Specimen A. 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 The specimen consists of a shave biopsy measuring 9x7x1 mm. Jar 0. 12:23 PM T DERMATOPATHOLOGY LABORATORY Microscopic Description Specimen A. SKIN, left upper arm: The epidermis shows parakeratosis, full thickness disorderly maturation of keratinocytes, mitoses at different levels, and dyskeratotic cells. 12:23 PM T DERMATOPATHOLOGY LABORATORY Disclaimer An external and internal positive and negative controls are appropriate for the histochemical, immunohistochemical and immunofluorescence stain(s) in this case (if any), except where stated explicitly. The performance characteristics of the stain(s) cited in this report were developed and its performance characteristic determined by the Dermatopathology Laboratory at [facility], directed by Dr. Sandie Giraldo. These tests need not be, and therefore are not, approved by the [place] Food and Drug Administration. The tests are used for clinical purposes. Billing Codes Specimen Charges Stain Charges 58036 1 12:23 PM CDT DERMATOPATHOLOGY LABORATORY Embedded Images 12:23 PM CDT DERMATOPATHOLOGY LABORATORY Pathology/Cytolo gy TISSUE SPECIMEN FROM SKIN / Unknown 06/08/2023 10:35 AM CDT 06/09/2023 7:50 AM CDT Yamileth Aggarwal DO LAB - PATHOLOGY/C YTOLOGY ORDERABLES DERMATOPATHOLOGY LABORATORY [facility] - Department of Dermatology [address], 3[address] Floor [address] [phone] documented in this encounter Visit Diagnoses Not on filedocumented in this encounter
--- OUTSIDE RECORDS SUMMARY | 2024-11-18 14:04 | XMS_ITS | Referral Summary ---
Author Organization [facility] Address [address] [facility] [place] [address] Care Team Providers Care Renal Nurse Name Role Phone Unavailable Primary Care Provider Unavailabl e Source Comments [facility],non-owned Affiliates and Associated Physician Practices is amultiple site organization consisting of ambulatory clinics and hospital sitesin [place], [place], [place] and [place]. This disclosure is being madepursuant to the Care Everywhere program and may not contain all information available regarding this patient. Last updated 18.[facility] [employer] Social History Tobacco Use Types Packs/Day Years Used Date Smoking Tobacco: Never Assessed Sex and Gender Information Value Date Recorded Sex Assigned at Not on file Gender Identity Not on file Sexual Orientation Not on file Plan of Treatment Not on file
[2024-11-20 01:29] LABS: Vitamin D 25 Hydroxy 63 ng/mL (30-100)
[2024-11-20 01:49] LABS: Total Triiodothyronine (T3) 77 ng/dL (76-181)
== END 2024-11-18 11:29 | disposition home or self-care (01) ==
LOC: CHSLAB 11:29
PROVIDERS: PCP Nurse Practitioner Family; Visit Provider Nurse Practitioner Family
DX: R53.83 Other fatigue (principal); R23.2 Flushing; Z79.899 Other long term (current) drug therapy; I10 Essential (primary) hypertension; Z13.6 Encounter for screening for cardiovascular disorders
CPT/HCPCS: 36415; 80053; 80061; 82306; 83735; 84439; 84443; 84480

== ENCOUNTER 2025-08-25 09:36 | Outpatient (CLI) | payer MEDICARE, SELFPAY ==
--- NOTE | ~2025-08-25 | XR_ITS ---
XR knee LT min 4V 08/25/2025 09:59 Indication: Left knee pain Procedure: 4 views left knee Comparison: 12/31/2013 Findings: There is moderate-severe tricompartment osteoarthritis, most advanced in the patellofemoral compartment with complete loss of joint space along the lateral facet. No acute fracture or traumatic malalignment. No significant joint effusion. No foreign bodies. Impression: 1: Moderate-severe tricompartment osteoarthritis of the left knee. Reviewed, dictated and finalized at location O. DRESSING MACHINE FEEDER Impression: 1: Moderate-severe tricompartment osteoarthritis of the left knee.
--- NOTE | ~2025-08-25 | XR_ITS ---
XR knee RT min 4V 08/25/2025 09:59 Indication: Right knee pain Procedure: 4 views right knee Comparison: 03/18/2024 Findings: Severe tricompartment osteoarthritis. No fracture, subluxation or dislocation. No significant joint effusion. No foreign bodies. Impression: 1: Severe tricompartment osteoarthritis of the right knee. Reviewed, dictated and finalized at location O. SCRAPER Impression: 1: Severe tricompartment osteoarthritis of the right knee.
--- OUTSIDE RECORDS SUMMARY | 2025-08-25 10:44 | XMS_ITS | Encounter Summary ---
Author Organization [facility] Address [address] [place] [address] Care Team Providers Care Lawn Sprinkler Installer Name Role Phone Unavailable Primary Care Provider Unavailabl e Encounter Details Date Type Department Care Team (Late st Contact Info) Description 08/15/2023 Lab Requisition [facility] - [facility] Lab [address] [facility], [place] [address] Yamileth Aggarwal DO [address] [facility] [address] [place] [address] Social History Tobacco Use Types Packs/Day Years Used Date Smoking Tobacco: Never Assessed Comments Unknown Sex and Gender Information Value Date Recorded Sex Assigned at Not on file Legal Sex Female 10:02 AM DEPUTY BRAND INSPECTOR Gender Identity Not on file Sexual Orientation Not on file documented as of this encounter Plan of Treatment Not on file documented as of this encounter Procedures Procedure Name Priority Date/Time Associated Diagnosis Comments DERMATOPATHOLOGY Routine 08/15/2023 11:1 6 AM DEPUTY BRAND INSPECTOR documented in this encounter Results * DERMATOPATHOLOGY (08/15/2023 11:16 AM DEPUTY BRAND INSPECTOR) Case Report Dermatopathology Report Case: [id number] Authorizing Provider: Yamileth Aggarwal DO Collected: 08/15/2023 11:16 AM Ordering Location: [facility] Lab Received: 08/16/2023 06:54 AM Pathologist: Shawna Delgdao MD Specimen: Skin, left upper arm 3:48 PM DEPUTY BRAND INSPECTOR DERMATOPATHOLOGY LABORATORY Final Diagnosis Specimen A. 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 Check Margins, Prior Biopsy 3 3:48 PM [facility] DERMATOPATHOLOGY LABORATORY Gross Description Specimen A: Received is one formalin filled container labeled with the patient's name and designated left upper arm. The specimen consists of a non-oriented ellipse of skin measuring 34f46s1 mm. The epidermal surface is unremarkable. The margin is inked green. The 12 o'clock and 6 o'clock tips are submitted in cassette 1. The remainder of the ellipse is serially sectioned and submitted in cassette 2-3. An additional piece of the ellipse measuring 9x6x1 mm is submitted in cassette 4. Jar 0. 3 3:48 PM [facility] DERMATOPATHOLOGY LABORATORY Microscopic Description Specimen A. SKIN, [...] to the skin surface. 3 3:48 PM [facility] DERMATOPATHOLOGY LABORATORY Disclaimer An external and internal positive and negative controls are appropriate for the histochemical, immunohistochemical and immunofluorescence stain(s) in this case (if any), except where stated explicitly. The performance characteristics of the stain(s) cited in this report were developed and its performance characteristic determined by the Dermatopathology Laboratory at [facility], directed by Dr. Sandie Giraldo. These tests need not be, and therefore are not, approved by the [place] Food and Drug Administration. The tests are used for clinical purposes. Billing Codes Specimen Charges Stain Charges 86602 1 3 3:48 PM [facility] DERMATOPATHOLOGY LABORATORY Embedded Images 3 3:48 PM [facility] DERMATOPATHOLOGY LABORATORY Pathology/Cytolo gy TISSUE SPECIMEN FROM SKIN / Unknown 08/15/2023 11:16 AM DEPUTY BRAND INSPECTOR 08/16/2023 6:54 AM DEPUTY BRAND INSPECTOR us Yamileth Aggarwal DO LAB - PATHOLOGY/CYTOLOGY ORDERABLES Final Result DERMATOPATHOLOGY LABORATORY [facility] - Department of Dermatology [facility] [facility], 3rd Floor [address] [phone] documented in this encounter Visit Diagnoses Not on filedocumented in this encounter
--- OUTSIDE RECORDS SUMMARY | 2025-08-25 10:44 | XMS_ITS | Clinical Summary ---
Author Organization [facility] Address [address] [place] [address] Care Team Providers Care Webbing Seamer Pound Net Name Role Phone Unavailable Primary Care Provider [...] Td Vaccines ( 1 - Tdap) 02/14/1967 Pneumococcal Vaccine: 50+ Ye ars (1 of 1 - PCV) 02/14/1998 Zoster Vaccines (1 of 2) 02/14/1998 Dexa Scan (General) 02/14/2013 RSV Immunization or 60+ Years (1 - 1-dose 75+ series) 02/14/2023 COVID-19 Vaccine (2024-2 6 season) 2025 Influenza Adult (#1) 2025 Hepatitis A Vaccines Aged Out No long er eligible based on patient's age to complete this topic Meningococcal B Vaccine Aged Out No l onger eligible based on patient's age to complete this topic Meningococcal Vaccine Aged Out No kim makayla eligible based on patient's age to complete this topic RSV Immunizations Under 20 Months Aged Out No longer eligible based on patient's age to complete this topic
--- OUTSIDE RECORDS SUMMARY | 2025-08-25 10:44 | XMS_ITS | Encounter Summary ---
Author Organization [facility] Address [address] [facility] [place] [address] Care Team Providers Care Tank House Supervisor Name Role Phone Unavailable Primary Care Provider Unavailabl e Encounter Details Date Type Department Care Team (Late st Contact Info) Description 06/08/2023 Lab Requisition [facility] - DermPath Lab [address] [facility], [place] [address] Yamileth Aggarwal DO [address] [facility] [address] [place] [address] Social History Tobacco Use Types Packs/Day Years Used Date Smoking Tobacco: Never Assessed Comments Unknown Sex and Gender Information Value Date Recorded Sex Assigned at Not on file 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 Gender Identity Not on file Sexual Orientation Not on file documented as of this encounter Plan of Treatment Not on file documented as of this encounter Procedures Procedure Name Priority Date/Time Associated Diagnosis Comments DERMATOPATHOLOGY Routine 06/08/2023 10:3 5 AM CDT documented in this encounter Results * DERMATOPATHOLOGY (06/08/2023 10:35 AM CDT) Case Report Dermatopathology Report Case: [id number] Authorizing Provider: Yamileth Aggarwal DO Collected: 06/08/2023 10:35 AM Ordering Location: [facility] DermPath Lab Received: 06/09/2023 07:50 AM Pathologist: Shawna Delgado MD Specimen: Skin, left upper arm 12:23 PM CDT DERMATOPATHOLOGY LABORATORY Final Diagnosis Specimen A. 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 The specimen consists of a shave biopsy measuring 9x7x1 mm. Jar 0. 12:23 PM CDT DERMATOPATHOLOGY LABORATORY Microscopic Description Specimen A. SKIN, left upper arm: The epidermis shows parakeratosis, full thickness disorderly maturation of keratinocytes, mitoses at different levels, and dyskeratotic cells. 12:23 PM CDT DERMATOPATHOLOGY LABORATORY Disclaimer An external and internal positive and negative controls are appropriate for the histochemical, immunohistochemical and immunofluorescence stain(s) in this case (if any), except where stated explicitly. The performance characteristics of the stain(s) cited in this report were developed and its performance characteristic determined by the Dermatopathology Laboratory at [facility], directed by Dr. Sandie Giraldo. These tests need not be, and therefore are not, approved by the [place] Food and Drug Administration. The tests are used for clinical purposes. Billing Codes Specimen Charges Stain Charges 42633 1 12:23 PM CDT DERMATOPATHOLOGY LABORATORY Embedded Images 12:23 PM CDT DERMATOPATHOLOGY LABORATORY Pathology/Cytolo gy TISSUE SPECIMEN FROM SKIN / Unknown 06/08/2023 10:35 AM CDT 06/09/2023 7:50 AM CDT us Yamileth Aggarwal DO LAB - PATHOLOGY/CYTOLOGY ORDERABLES Final Result DERMATOPATHOLOGY LABORATORY [facility] - Department of Dermatology [address], [address] [phone] documented in this encounter Visit Diagnoses Not on filedocumented in this encounter
--- OUTSIDE RECORDS SUMMARY | 2025-08-25 10:44 | XMS_ITS | Clinical Summary ---
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 Gender Identity Not on file Sexual Orientation Not on file Obstetrics History Para Term AB IAB SAB Ectopic Multiple Livin g Live Births 2 2 2 Date Outcome GA Total Labor Labor/2nd/3rd Weight Sex Type Anes PTL Stayc A1 A5 Name Clin Term Term Last Filed Vital Signs Vital Sign Reading Time Taken Comments Blood Pressure - - Pulse - - Temperature - - Respiratory Rate - - Oxygen Saturation - - Inhaled Oxygen Concentration - - Weight - - Height 160 cm (5' 3) 09/12/2024 8:52 AM WELDING MACHINE OPERATOR GAS MET[employer] ARC Body Mass Index - - Plan of Treatment Health Maintenance Due Date Last Done Comments Depression Screening 1948 Fall Risk Assessment 1950 Hepatitis C Screening 1950 DTaP/Tdap/Td Vaccine (1 - Tdap) 02/14/1959 Hepatitis B Screening 02/14/1966 Zoster Vaccine (1 of 2) 02/14/1998 Well Visit 65+ 02/14/2013 Influenza Vaccine (#1) 2025 9, 06/12/2017, 05/31/2016, Additional history exists Osteoporosis Screening-Bone Density Scan 08/14/2025 08/14/2023, 07/27/2021 Pneumococcal vaccine 65+ Completed 06/04/2018, 05/2017 Breast Cancer Screening-Mammogram Discontinued 09/12/2024, 08/14/2023, 08/10/2022, Additional history exists Procedures Procedure Name Priority Date/Time Associated Diagnosis Comments SCREENING MAMMOGRAM BILATERAL W OWEN Schedule Routine, Read Routine (OP Routine) 09/12/2024 8:52 AM WELDING MACHINE OPERATOR GAS METAL ARC Screening mammogram, encounter for DEXA AXIAL SKELETON BONE DENSITY 1 OR MORE SITES Schedule Routine, Read Routine (OP Routine) 08/14/2023 10:35 AM WELDING MACHINE OPERATOR GAS METAL ARC Asymptomatic menopausal state from Last 3 Months or Most Recently Relevant to Health Maintenance Results * Screening Mammogram Bilateral W Owen (09/12/2024 8:52 AM WELDING MACHINE OPERATOR GAS METAL ARC) Anatomical Region Laterality Modality Breast Bilateral Mammography 09/12/2024 9:12 AM WELDING MACHINE OPERATOR GAS METAL ARC Impressions 09/12/2024 9:12 AM WELDING MACHINE OPERATOR GAS METAL ARC No evidence of malignancy in either breast. FINAL ASSESSMENT: BI-RADS Category 1: Negative. RECOMMENDATION: Recommend return for annual screening mammogram in 12 months. Electronically signed by: Tahir Ochoa M.D. 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 MF: THERESE Report ID: [id number] Reading Location: [place] [address] Pradeep Amador MD IMG DXA PROCEDURES Final Re sult from Last 3 Months or Most Recently Relevant to Health Maintenance Insurance [facility] MEDIC[facility] ADVANTAGE MEDICARE [facility] MEDIC[facility] ADVANTAGE [facility] MEDIC[facility] ADVANTAGE Care Teams Ship Design Teacher Relationship Specialty Start Date End Date Carisa Petit NP [address] [place] [address] PCP - General 07/27/21
--- OUTSIDE RECORDS SUMMARY | 2025-08-25 10:44 | XMS_ITS | Encounter Summary ---
Author Organization [facility] Address [address] [facility] [place] [address] Care Team Providers Care Candy Vendor Name Role Phone Unavailable Primary Care Provider Unavailabl e Encounter Details Date Type Department Care Team (Late st Contact Info) Description 08/09/2019 Lab Requisition [facility] DermPath Lab [address] [facility] [place] [phone] Yamileth Aggarwal DO [address] [facility] [address] [place] [address] Social History Tobacco Use Types Packs/Day Years Used Date Smoking Tobacco: Never Assessed Comments Unknown Sex and Gender Information Value Date Recorded Sex Assigned at Not on file 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 Gender Identity Not on file Sexual Orientation Not on file documented as of this encounter Plan of Treatment Not on file documented as of this encounter Procedures Procedure Name Priority Date/Time Associated Diagnosis Comments DERMATOPATHOLOGY Routine 08/08/2019 12:0 0 AM MATERIALS PLANNER documented in this encounter Results * DERMATOPATHOLOGY (08/08/2019 12:00 AM MATERIALS PLANNER) Case Report Dermatopathology Report Case: [id number] Authorizing Provider: Yamileth Aggarwal DO Collected: 08/08/2019 12:00 AM Ordering Location: [facility] DermPath Lab Received: 08/09/2019 08:13 AM Pathologist: Racquel Herring MD Specimen: Skin, right medial foot 9 12:48 PM MATERIALS PLANNER DERMATOPATHOLOGY LABORATORY Final Diagnosis Specimen A. SKIN, right medial foot: SPONGIOTIC DERMATITIS WITH EOSINOPHILS (L30.8) (see microscopic description and comment) EPIDERMAL NECROSIS SUGGESTIVE OF EXCORIATION (L98.499) 9 12:48 PM MATERIALS PLANNER DERMATOPATHOLOGY LABORATORY at 1248 MATERIALS PLANNER Clinical History [place]/scaly/fissured plaques ANGELITA feet/hands. PSO vs ICD/ACD. 12:48 PM [facility] DERMATOPATHOLOGY LABORATORY Gross Description Specimen A: Received is one formalin filled container labeled with the patient's name and designated right medial foot. The specimen consists of a shave measuring 1t6p3uj. Jar 0. 12:48 PM [facility] DERMATOPATHOLOGY LABORATORY Microscopic Description Specimen A. SKIN, [...] urticarial phase of bullous pemphigoid. 12:48 PM [facility] DERMATOPATHOLOGY LABORATORY Disclaimer An external and internal positive and negative controls are appropriate for the histochemical, immunohistochemical and immunofluorescence stain(s) in this case (if any), except where stated explicitly. The performance characteristics of the stain(s) cited in this report were developed and its performance characteristic determined by the Dermatopathology Laboratory at [facility], directed by Dr. Sandie Giraldo. These tests need not be, and therefore are not, approved by the [place] Food and Drug Administration. The tests are used for clinical purposes. Billing Codes Specimen Charges Stain Charges 16665 1 [id number] 1 1 12:48 PM [facility] DERMATOPATHOLOGY LABORATORY Embedded Images 12:48 PM [facility] DERMATOPATHOLOGY LABORATORY Pathology/Cytolog y TISSUE SPECIMEN FROM SKIN / Unknown 08/08/2019 08/09/2019 8:13 AM MATERIALS PLANNER us Yamileth Aggarwal DO LAB - PATHOLOGY/CYTOLOGY ORDERABLES Final Result DERMATOPATHOLOGY LABORATORY [facility] - Department of Dermatology [address] [place] [address], [address] Floor Lab [address] [phone] documented in this encounter Visit Diagnoses Not on filedocumented in this encounter
--- OUTSIDE RECORDS SUMMARY | 2025-08-25 10:44 | XMS_ITS | Clinical Summary ---
Author Organization [facility] Address [address] [facility] [place] [address] Care Team Providers Care Bill Peddler Name Role Phone Unavailable Primary Care Provider Unavailabl e Source Comments [facility],non-owned Affiliates and Associated Physician Practices is amultiple site organization consisting of ambulatory clinics and hospital sitesin [place], [place]. This disclosure is being madepursuant to the Care Everywhere program and may not contain all information available regarding this patient. 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
== END 2025-08-25 09:37 | disposition home or self-care (01) ==
LOC: CHSIMG 09:38
PROVIDERS: PCP Nurse Practitioner Family; Visit Provider Orthopaedic Surgery
DX: M25.561 Pain in right knee (principal); M25.562 Pain in left knee; M17.0 Bilateral primary osteoarthritis of knee
CPT/HCPCS: 73564